=== PATIENT | female | born 1935 | race Caucasian/White ===

== ENCOUNTER 2018-10-21 18:53 | Emergency (ER) | payer MEDICARE, OTHER ==
--- NOTE | 2018-10-21 19:49 | XRAY Report ---
Reason: slip/fall. pain and swelling. limited ROM. Procedure Date: 10/21/2018 Accession Number: [id number] / [id number] Procedure: XR - Shoulder 3 View LT CPT Code: FULL RESULT: EXAM: LEFT SHOULDER RADIOGRAPHY EXAM DATE: 10/21/2018 07:32 PM. CLINICAL HISTORY: Slip/fall. Pain and swelling. limited ROM. COMPARISON: None. TECHNIQUE: 3 views. FINDINGS: Bones: Comminuted and impacted fracture involving the head of the left humerus. The visualized scapula and clavicle appear intact Joints: Inferior dislocation of the humeral head. Soft tissues: Soft tissue swelling about the fracture IMPRESSION: Comminuted and impacted intra-articular fracture involving the left humeral head with glenohumeral dislocation. RADIA
[2018-10-21 20:11] VITALS: BP 162/90
--- NOTE | 2018-10-21 22:09 | ED Physician Documentation ---
PD HPI Fall - Stated complaint Stated Complaint: GLF/HEAD AND SHOULDER INJURY - Chief complaint Chief Complaint: Trauma Ext - History obtained from History obtained from: Patient, Family - History of Present Illness Mechanism of injury: Slipped Fall distance: Standing position Where injury occurred: Home Timing - onset: Enter time (17:30), Today Injury(ies) location: Left Uppper Extremity Pain level now: 5 Quality of pain: Pain Associated symptoms: No: LOC, AMS, Neck pain, Weakness, Paresthesias Symptoms improve with: Rest Worsens with: Movement, Palpation Contributing factors: No: Anticoagulated, Intoxicated Recently seen: Not recently seen - Additional information Additional information: slipped and fell in her garage today 5:30 PM, c/o left shoulder pain. she is right hand dominant. denies other injury Review of Systems Cardiac: reports: Reviewed and negative Respiratory: reports: Reviewed and negative GI: reports: Reviewed and negative Musculoskeletal: reports: Joint pain. denies: Neck pain, Back pain Neurologic: denies: Generalized weakness, Focal weakness, Numbness, Headache, Head injury, LOC PD PAST MEDICAL HISTORY - Past Medical History Past Medical History: Yes Cardiovascular: Hypertension, High cholesterol Endocrine/Autoimmune: HyPOthyroidism - Present Medications Home Medications: Ambulatory Orders Medication Instructions Recorded Confirmed Aspirin Chewable [St [place]in 81 mg PO DAILY 10/21/18 10/21/18 Aspirin] Levothyroxine [Synthroid] 50 mcg PO QDAC 10/21/18 10/21/18 Metoprolol Succinate 100 mg PO DAILY 10/21/18 10/21/18 Multivitamin [Multiple Vitamins] 1 each PO DAILY 10/21/18 10/21/18 [place]-3 Fatty Acids [Fish Oil 1,000 mg PO DAILY 10/21/18 10/21/18 Concentrate] Ramipril 10 mg PO DAILY 10/21/18 10/21/18 Rosuvastatin Calcium 20 mg PO QPM 10/21/18 10/21/18 oxyCODONE/ACET 5/325 [Percocet 5 1 - 2 each PO Q6H PRN #14 tablet 10/21/18 mg/325 mg] - Allergies Allergies/Adverse Reactions: Allergies Allergy/AdvReac Type Severity Reaction Status Date / Time nitrofurantoin AdvReac Mild Unknown Verified 10/21/18 22:22 - Living Situation Living Arrangement: reports: At home PD ED PE NORMAL - Vitals Vital signs reviewed: Yes - General General: Alert and oriented X 3, No acute distress (NAD at rest but obvious painful discomfort with any movement involving left shoulder), Well developed/nourished - HEENT HEENT: Atraumatic - Neck Neck: No bony TTP - Respiratory Respiratory: No respiratory distress, Clear bilaterally - Back Back: No spinal TTP - Neuro Neuro: Alert and oriented X 3, sweatband perforator 2-12 intact, No motor deficit, No sensory deficit, Normal speech, Other (LTS intact to left FA, hand, lateral surface of deltoid. normal strength left shelter supervisor, finger abduction) PD ED PE EXPANDED - Extremities Extremities: Tenderness, Limited ROM, Left shoulder, Other (left hand/digits warm, pink, with brisk capillary refill. strong left radial pulse) Results - Vitals Vitals: Oxygen O2 Source Room air - Rads (name of study) left shoulder xrays Radiology: Prelim report reviewed, See rad report PD MEDICAL DECISION MAKING - ED course Complexity details: reviewed results, re-evaluated patient, considered differential, d/w patient, d/w family ED course: D/W Dr. Monsivais. he reviewed the images (xrays) and opines that images are more c/w fracture with subluxation and not dislocation. he recommends sling, analgesia, and f/u outpatient, with anticipation of likely reduction of the subluxation occurring spontaneously in the interim Departure - Departure Disposition: 01 Home, Self Care Clinical Impression: Shoulder fracture, left Qualifiers: Encounter type: initial encounter Fracture type: closed Qualified Code(s): S42.92XA - Fracture of left shoulder girdle, part unspecified, initial encounter for closed fracture Subluxation of left shoulder joint Qualifiers: Encounter type: initial encounter Qualified Code(s): S43.002A - Unspecified subluxation of left shoulder joint, initial encounter Condition: Good Instructions: ED Fx Shoulder, ED Sling Follow-Up: Eric Monsivais MD [Provider Admit Priv/Credential] - Within 3 Days Prescriptions: oxyCODONE/ACET 5/325 [Percocet 5 mg/325 mg] 1 - 2 each PO Q6H PRN #14 tablet PRN Reason: Pain Discharge Date/Time: 10/21/18 23:21
[2018-10-21] MEDS ORDERED: oxyCODONE/ACET 5/325 Prepack 4 PO STA (23:01)
== END 2018-10-21 23:21 | disposition home or self-care (01) ==
LOC: ED 18:53
DX: S42.292A Other displaced fracture of upper end of left humerus, initial encounter for closed fracture (principal); W01.0XXA Fall on same level from slipping, tripping and stumbling without subsequent striking against object, initial encounter; Y92.008 Other place in unspecified non-institutional (private) residence as the place of occurrence of the external cause; I10 Essential (primary) hypertension; Z79.82 Long term (current) use of aspirin
CPT/HCPCS: 99283; 99284

== ENCOUNTER 2018-10-24 15:45 | Outpatient (CLI) | payer MEDICARE, OTHER ==
--- NOTE | 2018-10-25 10:03 | CT Report ---
Reason: UNSPEICFIED FX UPPER END OF UNSP HUMERUS INITIAL Procedure Date: 10/24/2018 Accession Number: [id number] / [id number] Procedure: CT - UPPER EXTREMITY WO - LT CPT Code: FULL RESULT: EXAM: LEFT SHOULDER CT WITHOUT CONTRAST EXAM DATE: 10/24/2018 04:16 PM. CLINICAL HISTORY: Proximal humerus fracture. Question preop planning. COMPARISON: SHOULDER 3 VIEW LT 10/24/2018 2:37 PM. TECHNIQUE: Thin-section axial images were acquired of the shoulder without contrast. Post-processing: Coronal and sagittal reformats. Other: 3D recon. In accordance with CT protocol optimization, one or more of the following dose reduction techniques were utilized for this exam: automated exposure control, adjustment of mA and/or KV based on patient size, or use of iterative reconstructive technique. FINDINGS: Bones: There is a comminuted fracture of the surgical neck of the humerus with intra-articular extension to involve the inferior and superior margins of the articular surface of the humeral head. The greater and lesser tuberosity are from the humeral head. There is moderate anterior displacement of the humeral shaft. The humeral head is inferiorly subluxed. There is a hemarthrosis with loose bony fragments. No other visible fractures. Joints: See above. Musculature: Normal. No fatty atrophy. Other: Small foci of left upper lobe atelectasis. IMPRESSION: 1. Comminuted fracture subluxation of the shoulder. The humeral head is in fairly subluxed. There is marked comminution and displacement of the greater and lesser tuberosity. There is a hemarthrosis with loose intra-articular fragments. RADIA
== END 2018-10-24 15:46 | disposition home or self-care (01) ==
LOC: DI 15:45
PROVIDERS: ATTEND Orthopaedic Surgery Sports Medicine
DX: S42.212A Unspecified displaced fracture of surgical neck of left humerus, initial encounter for closed fracture (principal); S43.032A Inferior subluxation of left humerus, initial encounter

== ENCOUNTER 2019-01-16 14:11 | Emergency (ER) | payer MEDICARE, OTHER ==
--- NOTE | 2019-01-16 14:55 | ED Physician Documentation ---
PD HPI CHEST PAIN - Stated complaint Stated Complaint: HIGH BLOOD PRESSURE - Chief complaint Chief Complaint: Cardiac - History obtained from History obtained from: Patient - History of Present Illness Timing - onset: Today (83-year-old woman with history of hypertension on ramipril and metoprolol. She went to the orthopedic surgeon today for follow-up on a left humeral fracture and it was noted that she had an asymptomatic significantly elevated high blood pressure. She denies any chest pain, headache, trouble breathing. She has had a little bit of pedal edema recently which she attributes to decreased activity due to the arm fracture. She has been compliant with her medications. No urinary complaints.) Review of Systems Constitutional: denies: Fever, Chills, Fatigue Cardiac: denies: Chest pain / pressure, Palpitations Respiratory: denies: Dyspnea, Cough PD PAST MEDICAL HISTORY - Past Medical History Cardiovascular: Hypertension, High cholesterol Endocrine/Autoimmune: HyPOthyroidism - Past Surgical History Past Surgical History: Yes General: Cholecystectomy /HEMOTHERAPIST: Hysterectomy Cardiovascular: Coronary stent HEENT: Cochlear implant, Tonsil/Adenoidectomy - Present Medications Home Medications: Ambulatory Orders Medication Instructions Recorded Confirmed Aspirin Chewable [St Florin 81 mg PO DAILY 10/21/18 10/21/18 Aspirin] Levothyroxine [Synthroid] 50 mcg PO QDAC 10/21/18 10/21/18 Metoprolol Succinate 100 mg PO DAILY 10/21/18 10/21/18 Multivitamin [Multiple Vitamins] 1 each PO DAILY 10/21/18 10/21/18 [place]-3 Fatty Acids [Fish Oil 1,000 mg PO DAILY 10/21/18 10/21/18 Concentrate] Ramipril 10 mg PO DAILY 10/21/18 10/21/18 Rosuvastatin Calcium 20 mg PO QPM 10/21/18 10/21/18 oxyCODONE/ACET 5/325 [Percocet 5 1 - 2 each PO Q6H PRN #14 tablet 10/21/18 mg/325 mg] - Allergies Allergies/Adverse Reactions: Allergies Allergy/AdvReac Type Severity Reaction Status Date / Time Sulfa (Sulfonamide Allergy Rash Verified 01/16/19 14:23 Antibiotics) nitrofurantoin AdvReac Mild Unknown Verified 01/16/19 14:23 - Social History Does the pt smoke?: No Smoking Status: Never smoker Does the pt drink ETOH?: No Does the pt have substance abuse?: No - Immunizations Immunizations are current?: Yes PD ED PE NORMAL - Vitals Vital signs reviewed: Yes - General General: Alert and oriented X 3, No acute distress - HEENT HEENT: PERRL, EOMI - Neck Neck: Supple, no meningeal sign, No bony TTP - Cardiac Cardiac: RRR, No murmur - Respiratory Respiratory: No respiratory distress, Clear bilaterally - Abdomen Abdomen: Non tender - Extremities Extremities: Other (Trace bilateral pitting pedal edema, symmetric, no calf tenderness.) - Neuro Neuro: Alert and oriented X 3, Normal speech Results - Vitals Vitals: Vital Signs - 24 hr 01/16/19 01/16/19 01/16/19 14:21 15:06 15:07 Temperature 36.8 C Heart Rate 80 72 Respiratory 18 18 Rate Blood Pressure 235/76 H 173/80 H Blood Pressure 173/80 H [Left] O2 Saturation 98 96 01/16/19 01/16/19 15:27 15:47 Temperature Heart Rate 68 68 Respiratory 18 12 Rate Blood Pressure 169/80 H 163/69 H Blood Pressure [Left] O2 Saturation 98 97 Oxygen O2 Source Room air - EKG (time done) 1503 Rate: Rate (enter#) (73) Rhythm: NSR [place]: Normal Intervals: Normal [place] QRS: Normal Ischemia: Normal ST segments Computer interpretation: Agree with computer - Labs Labs: Laboratory Tests 01/16/19 14:48 Sodium 139 Potassium 4.0 Chloride 102 Carbon Dioxide 26 Anion Gap 11.0 BUN 17 Creatinine 0.8 Estimated GFR (MDRD) 69 L Glucose 103 H Calcium 9.9 Total Bilirubin 0.6 AST 20 ALT 19 Alkaline Phosphatase 49 Total Protein 7.6 Albumin 4.3 Globulin 3.3 Albumin/Globulin Ratio 1.3 Lipase 37 PD MEDICAL DECISION MAKING - ED course ED course: This is a 83-year-old woman with known hypertension who presents with asymptomatic elevated blood pressures. She was watched in the emergency department and it drifted down to about 165/70. She remained asymptomatic, her renal function is normal. There is no evidence of CHF or other endorgan damage. She has an appointment with her clerical production worker next week and I recommended doubling her ramipril until then. Departure - Departure Disposition: Home, Self Care Clinical Impression: Essential hypertension Condition: Good Record reviewed to determine appropriate education?: Yes Instructions: ED HTN Established Comments: Increase your altace to 10 mg twice a day or 20 mg once a day, follow-up with your clerical production worker next Wednesday as scheduled. Return for new or worsening symptoms. Discharge Date/Time: 01/16/19 15:54
[2019-01-16 15:10] LABS: ALBUMIN 4.3 g/dL (3.2-5.5); ALBUMIN/GLOBULIN RATIO 1.3 (1.0-2.2); BILIRUBIN,TOTAL 0.6 mg/dL (0.2-1.0); CALCIUM 9.9 mg/dL (8.5-10.3); CREATININE 0.8 mg/dL (0.4-1.0); TOTAL PROTEIN 7.6 g/dL (6.7-8.2)
[2019-01-16 15:48] VITALS: BP 163/69
== END 2019-01-16 15:54 | disposition home or self-care (01) ==
LOC: ED 14:11
DX: I10 Essential (primary) hypertension (principal)
CPT/HCPCS: 36415; 80053; 83690; 93005; 99283

== ENCOUNTER 2021-08-11 08:00 | Outpatient (CLI) | payer MEDICARE, OTHER | END 2021-08-11 23:59 | disposition home or self-care (01) | LOC: LAB.S 08:00 | PROVIDERS: ATTEND Physician Assistant | DX: N39.0 Urinary tract infection, site not specified (principal) | CPT/HCPCS: 87077; 87086; 87181 ==

== ENCOUNTER 2022-02-03 08:00 | Outpatient (CLI) | payer MEDICARE, OTHER | END 2022-02-03 23:59 | disposition home or self-care (01) | LOC: LAB 08:00 | PROVIDERS: ATTEND Registered Nurse | DX: R30.0 Dysuria (principal) | CPT/HCPCS: 87077; 87086; 87181 ==

== ENCOUNTER 2023-01-18 08:00 | Outpatient (CLI) | payer MEDICARE, OTHER | END 2023-01-18 23:59 | disposition home or self-care (01) | LOC: LAB.S 08:00 | PROVIDERS: ATTEND Physician Assistant | DX: N39.0 Urinary tract infection, site not specified (principal) | CPT/HCPCS: 87077; 87086; 87181 ==

== ENCOUNTER 2023-07-16 10:45 | Outpatient (CLI) | payer MEDICARE, OTHER ==
[2023-07-16 15:36] LABS: THYROID STIMULATING HORMONE 3.72 uIU/mL (0.34-5.60)
[2023-07-16 20:18] LABS: ESTIMATED AVERAGE GLUCOSE 146 mg/dL (70-100); HEMOGLOBIN A1c% 6.7 % (4.27-6.07)
== END 2023-07-16 10:46 | disposition home or self-care (01) ==
LOC: LAB.S 10:45
PROVIDERS: ATTEND Internal Medicine
DX: I10 Essential (primary) hypertension (principal); E78.5 Hyperlipidemia, unspecified; H91.90 Unspecified hearing loss, unspecified ear; R73.09 Other abnormal glucose; E03.9 Hypothyroidism, unspecified
CPT/HCPCS: 36415; 80053; 80061; 83036; 83721; 84443; 85025